=== PATIENT | female | born 1990 | race African-American/Black ===

== ENCOUNTER 2017-08-24 17:38 | Emergency (ER) | payer OTHER ==
[~2017-08-24] VITALS: Ht 266.7 cm; Wt 74.1 kg
[2017-08-24 17:45] VITALS: BP 111/75; PULSE 82; TEMP 36.8; O2SAT 97; Ht 266.7 cm; Wt 74.1 kg
--- NOTE | 2017-08-24 18:35 | EMERGENCY ROOM VISIT NOTE ---
ED Visit Note First contact with patient: 18:15 CHIEF COMPLAINT: Intermittent right-sided nosebleed over the last week HISTORY OF PRESENT ILLNESS: Patient is a 26-year-old -[place] female who presents emergency department for evaluation of intermittent nosebleeds. She states that she has had problems with nosebleeds when she was younger, they did require cauterization, but the last time she was cauterized was probably 10 years ago. She lives in the [facility] and is here locally during the week for the [facility] for the next 19 weeks. She states that she developed right -sided nosebleeds last week. They would happen intermittently, she reports it happened about 3-4 times over the entire week. They're always right-sided. She states that she pinches her nose and holds pressure, and applies ice. She has been able to get the bleeding to stop. Her worst nosebleed was 2 days ago on Tuesday when it lasted her about 40 minutes. She states that she has not been able to come here for treatment due to the [employer]. At the present time, her nose is not bleeding. There was no trauma to the nose and no recent upper respiratory infection. She has been very physically active. The patient is not on Coumadin or other anticoagulants. No difficulty breathing, no cough, no headache or sore throat. REVIEW OF SYSTEMS: Review of systems as per HPI. All other systems reviewed were negative. At least 6 systems reviewed. PMH: The patient is otherwise healthy without chronic medical problems or surgeries. SOCIAL HISTORY: Patient lives at home with her family. She does not smoke. PHYSICAL EXAM: Vital Signs: Reviewed Nurse's notes. CONSTITUTIONAL: Patient is a pleasant, well-appearing 26-year-old female who is awake and alert and in no acute distress. EARS: Tympanic membranes intact, not inflamed, have normal contour. External canals clear. MOUTH: Mucous membranes moist, no lesions, tongue and gums appear normal. THROAT: No pharyngeal injection, exudates, or tonsillar hypertrophy. Airway is patent. NOSE: Nares are patent bilaterally, moist mucosa. No dried blood, or source for bleeding noted. EMERGENCY DEPARTMENT COURSE: The patient was seen and evaluated as above. She has had some intermittent nosebleeds over the last week, however on exam at this time she is not actively bleeding and does not have any clear source of bleed on exam. It was not felt that cautery was indicated at this time given the lack of source. Continued conservative care measures were discussed. Patient was advised to get Afrin, she declined a home pack from the emergency Department due to insurance costs. She was encouraged to hold pressure with a nasal clamp, and if she has a nosebleed that she is unable to get stopped in the future she should present to the emergency department immediately for evaluation. If her symptoms persist she may need to be seen by ENT, which she states she will be unable to do here due to her insurance. Nonetheless, she can certainly be packed in the emergency department if indicated. Medication reconciliation: I attest that I have personally reviewed the patient' s current medication list. Blood pressure screening : Patient was found to have normal blood pressure on screening and does not require follow-up. Current/Historical Medications No Active Prescriptions or Reported Meds Allergies Coded Allergies: No Known Allergies (Unverified , 08/24/17) Vital Signs Date Time Temp Pulse Resp B/P (MAP) Pulse Ox O2 Delivery O2 Flow Rate FiO2 08/24/17 17:45 36.8 82 18 111/75 97 Room Air Departure Information Impression Primary Impression: Right-sided epistaxis Prescriptions No Active Prescriptions or Reported Meds Referrals No Doctor, Assigned (PCP) Patient Instructions My [facility] Additional Instructions If nosebleed recurs, blow nose clear of clots, apply 2 sprays of Afrin to affected side and apply nasal clamp. Leave clamp in place, undisturbed for 60 minutes. If you are unable to get bleeding stopped, seek medical attention. Use a saline nasal spray to keep nasal mucosa moist. Use a humidifier at night. Follow up with ENT if symptoms persist.
== END 2017-08-24 18:42 | disposition home or self-care (01) ==
LOC: C.EDB 17:40 → C.EDD 18:42
DX: R04.0 Epistaxis (principal)

== ENCOUNTER 2017-09-28 17:15 | Emergency (ER) | payer OTHER ==
[~2017-09-28] VITALS: Ht 165.1 cm; Wt 73.3 kg
[2017-09-28 17:26] VITALS: TEMP 36.8; Ht 165.1 cm; Wt 73.3 kg
--- NOTE | 2017-09-28 18:26 | DIAGNOSTIC IMAGING REPORT ---
L SHOULDER MIN 2 VIEWS ROUTINE CLINICAL HISTORY: Left shoulder pain COMPARISON: None. DISCUSSION: No fractures or dislocations are visualized. There are no visible particular calcifications. IMPRESSION: Normal conventional radiographic evaluation of the left shoulder Electronically signed by: Noah Hastings M.D. 09/28/2017 6:25 PM Dictated Date/Time: 09/28/2017 6:25 PM
--- NOTE | 2017-09-28 18:56 | EMERGENCY ROOM VISIT NOTE ---
History First contact with patient: 17:27 Chief Complaint: SHOULDER PAIN Stated Complaint: LT SHOULDER PAIN History of Present Illness The patient is a 26 year old female who presents to the Emergency Room with complaints of left shoulder pain. The patient states that she was doing [employer] s a few days ago at the gym and noticed a pain in her left shoulder while doing these. She rested through the weekend and attempted to do push-ups yesterday, which again worsened her pain. She states that her left arm feels weak and she has difficulty moving the shoulder in certain positions. She reports some tingling into her fourth and fifth fingers of the left hand which occurred right after the injury. She states that the pain feels to be deep inside her shoulder and rates her discomfort a 3/10 at rest, and a 9/10 with movement. She states she has felt rubbing, clicking sensations in the shoulder. The pain has been making it difficult for her to sleep. She has been applying ice and using icy hot without relief. She saw an net trainer today, who told her to come here for evaluation. Review of Systems A complete 6 point review of systems was reviewed with the patient with pertinent positives and negatives as per history of present illness. All else were negative. Past Medical/Surgical History Medical Problems: (1) No Known Active Medical Problems Social History Smoking Status: Never Smoker Marital Status: single Current/Historical Medications Unable to Obtain Active Prescriptions or Reported Meds Physical Exam Vital Signs Date Time Temp Pulse Resp B/P (MAP) Pulse Ox O2 Delivery O2 Flow Rate FiO2 09/28/17 19:11 65 16 110/80 96 09/28/17 17:26 36.8 81 18 112/73 98 Room Air Physical Exam VITALS: Vitals are noted on the nurse's note and reviewed by myself. Vital signs stable. GENERAL: This is a 26-year-old female, in no acute distress, nondiaphoretic, well-developed well-nourished. SKIN: No rashes noted. HEART: Regular rate and rhythm without murmurs gallops or rubs. LUNGS: Clear to auscultation bilaterally without wheezes, rales or rhonchi. MUSCULOSKELETAL: There is vague tenderness to the anterior left shoulder. Decreased range of motion in all directions due to patient discomfort. [employer]inery [employer] Reforming Unit strength 5/5. Radial pulse 2+. NEURO: Patient was alert and oriented to person place and time. Medical Decision & Procedures ER Provider Diagnostic Interpretation: L SHOULDER MIN 2 VIEWS ROUTINE CLINICAL HISTORY: Left shoulder pain COMPARISON: None. DISCUSSION: No fractures or dislocations are visualized. There are no visible particular calcifications. IMPRESSION: Normal conventional radiographic evaluation of the left shoulder Medical Decision Differential diagnosis includes fracture, dislocation, tendinitis, bursitis, rotator cuff injury, among others. The patient was evaluated as above. X-ray of the shoulder was obtained and read by radiology with no acute findings. The patient was informed of this. She requested that an MRI be performed and states that she was told by her physical trainer that we could perform an MRI in the ER. I explained to her that this was not reasonable to perform at this time in the ER, and she will need to see an orthopedist for further evaluation. She was offered an arm sling but declined. Conservative measures were discussed with the patient. She verbalized understanding and was discharged home in good condition. Medication Reconcilliation Current Medication List: was personally reviewed by me Blood Pressure Screening Patient's blood pressure: Normal blood pressure Impression Primary Impression: Left shoulder pain Departure Information Dispostion Home / Self-Care Condition GOOD Prescriptions Unable to Obtain Active Prescriptions or Reported Meds Referrals No Doctor, Assigned (PCP) Saleem Costa M.D. Patient Instructions My [facility] Additional Instructions You have been treated in the Emergency Department for Shoulder Pain. For pain control, you can use the following [id number] medicines (if >12 yo): - Regular strength (325mg/tab) Tylenol (acetaminophen) 2 tabs every 4-6 hours as needed. Do not exceed 12 tablets in a 24 hour period. Avoid taking more than 4 grams (4000 mg) of Tylenol per day. This includes any other sources of acetaminophen you may take on a regular basis. - Regular strength (200 mg/tab) Advil (ibuprofen) 1-2 tabs every 4-6 hours as needed. Do not exceed a dose of 3200 mg per day. If this is a recent injury (<24 hrs), ice can be applied to the area of pain for the first 3 days to help decrease pain and inflammation. You have been provided the number for an Orthopaedic Surgeon. You should call this number as soon as possible to establish a follow-up visit from today's Emergency Department visit. Wear the sling as needed for shoulder pain. If you wear the sling all day, make sure to take it off a few times a day and perform some range of motion exercises. Return to the Emergency Department if your current symptoms worsen despite treatment course outlined above, or if you develop any of the following symptoms : intractable pain despite aforementioned treatment course or new onset of numbness or tingling of the arm. Problem Qualifiers Primary Impression: Left shoulder pain Chronicity: acute Qualified Codes: M25.512 - Pain in left shoulder
[2017-09-28 19:11] VITALS: BP 110/80; PULSE 65; O2SAT 96
== END 2017-09-28 19:12 | disposition home or self-care (01) ==
LOC: C.EDB 17:17 → C.EDD 19:12
DX: M25.512 Pain in left shoulder (principal)